=== PATIENT | male | born 1950 | race Caucasian/White ===

== ENCOUNTER 2016-10-09 09:28 | Observation (INO) | payer MEDICARE, OTHER ==
[~2016-10-09] VITALS: Ht 180.3 cm; Wt 99.8 kg
[~2016-10-09 09:28] MED LIST: ENOXAPARIN 40 MG/0.4 ML SYRINGE (J1650) SC SCH
--- NOTE | 2016-10-09 10:13 | REP ---
Clinical: Cerebrovascular accident. Comparison: None. Findings: Very subtle low density area within the left posterior parietal region is nonspecific but may represent acute infarction. Small old infarctions involving the left cerebellar hemisphere along with mild age-related atrophy and microvascular ischemic changes noted. The ventricles are symmetric and normal. No midline shift or mass effect appreciated. No acute intracranial hemorrhage. No extra-axial collection. Calvarium is intact paranasal sinuses and mastoid air cells are clear. Impression: 1. Chronic age-related changes without prior exams for comparison. 2. Cannot exclude subtle acute left parietal infarct. No associated mass effect, edema, or hemorrhage noted. Signed by Abraham Gilbert MD 10/09/2016 10:05 A
--- NOTE | 2016-10-09 10:35 | REP ---
Clinical: Cerebrovascular accident . Comparison: 08/08/2005 . Technique: PA view only. Findings: The mediastinum and cardiac silhouette are normal. The lung preston are clear and without acute consolidation, effusion, or pneumothorax. The skeletal structures are intact and normal. Impression: 1. No acute cardiopulmonary process. Signed by Abraham Gilbert MD 10/09/2016 10:27 A
[2016-10-09 10:41] LABS: BASO % 0.8 % (0.0-1.0); EOS % 1.1 % (0.0-3.0); LARGE UNSTAINED CELL # 0.1 K/mm3 (0.0-0.4); LARGE UNSTAINED CELL % 1.5 % (0.0-4.0); LYMPH # 1.5 K/mm3 (1.5-4.5); LYMPH % 28.4 % (24.0-44.0); MEAN CORPUSCULAR HEMOGLOBIN 32.6 pg (27.0-33.0); MEAN CORPUSCULAR HGB CONC 34.3 g/dl (32.0-36.5); MEAN CORPUSCULAR VOLUME 95.1 fl (80.0-96.0); MONO # 0.4 K/mm3 (0.0-0.8); NEUTROPHILS # 3.1 K/mm3 (1.8-7.7); NEUTROPHILS % 61.3 % (36.0-66.0); PLATELET COUNT, AUTOMATED 194 k/mm3 (150-450); RED CELL DISTRIBUTION WIDTH 12.4 % (11.5-14.5); WHITE BLOOD COUNT 5.1 K/mm3 (4.0-10.0)
[2016-10-09 10:45] LABS: INR 0.95
[2016-10-09 11:11] LABS: ANION GAP 3 MEQ/L (8-16); BLOOD UREA NITROGEN 19 MG/DL (7-18); CARBON DIOXIDE LEVEL 33 MEQ/L (21-32); CHLORIDE LEVEL 108 MEQ/L (98-107); CREATININE FOR GFR 1.27 MG/DL (0.70-1.30); GLOMERULAR FILTRATION RATE > 60.0 (>49); GLUCOSE, FASTING 104 MG/DL (80-110); POTASSIUM SERUM 4.7 MEQ/L (3.5-5.1); SODIUM LEVEL 144 MEQ/L (136-145)
[2016-10-09] MEDS ORDERED: ASPIRIN 325 MG TAB PO ONE (12:00)
--- NOTE | 2016-10-09 12:02 | REP ---
MRI BRAIN WITHOUT CONTRAST: 10/09/2016. Comparison: CT brain 10/09/2016. Clinical history: Left upper arm weakness. Abnormal CT with old infarcts left medial cerebellar hemisphere and questionable left parietal acute findings. Technique: Sagittal T1 with axial T1, T2, FLAIR, gradient echo, diffusion-weighted images and ADC mapping sequences. Findings. Lateral ventricles were generally symmetric, midline and without dilatation or displacement. Third and fourth ventricles were likewise grossly unremarkable. Basal ganglia shows dilated perivascular spaces without acute finding. Periventricular region shows some minor increased T2 and FLAIR signal with a couple of subcortical right frontal and anterior parietal hyperintense lesions and a few in posterior parietal lobes near the atria of the lateral ventricles. There is no vascular territory infarct, hemorrhage, mass or mass effect in the cerebral hemispheres. I do not see evidence of an acute ischemic focus were evidence of restricted water diffusion in the left parietal lobe or elsewhere in the cerebral hemispheres. Brainstem was intact. Cerebellum showed no acute infarct. There is old infarct with encephalomalacia in the medial aspect of the left cerebral hemisphere. No brain stem signal abnormality. The seventh/eighth cranial nerve complexes were intact. There is some ethmoid sinus mucosal thickening as well as a few of the peripheral left mastoid air cells with opacification suggesting minor left mastoiditis. No air-fluid levels. Orbits and contents symmetric and normal. Corpus callosum, optic chiasm and the craniocervical junction were intact. There is no cerebellar tonsillar ectopia. There is a partially empty sella with a thinned appearance to the pituitary gland in the sella. Gradient echo images show no acute hemorrhage. Areas of signal abnormality with dark signal on the gradient echo and diffusion sequences, which represent the dural calcifications seen on CT. Impression: 1. 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 2. There is no acute infarct, hemorrhage, mass or edema in either cerebral hemisphere. 3. Some periventricular and deep subcortical white matter hyperintense T2 and FLAIR signal foci present bilaterally. This represents small vessel white matter ischemic change or gliosis. No acute finding. Unreviewed
--- NOTE | 2016-10-09 12:18 | ECGEPIP ---
Stationary ECG Study [facility] - ED Test Date: 2016-10-09 Pat Name: BONITA ROSSI Department: Room: - Gender: M Project Internship: JT : 1950 Requested By: Jean Carlos Chaudhari Order Number: [id number] Reading MD: Libia Archibald Measurements Intervals [place] Rate: 64 P: 28 NV: 166 QRS: -17 QRSD: 82 T: 29 QT: 354 QTc: 366 Interpretive Statements SINUS RHYTHM LOW VOLTAGE LIMB NO PRIOR FOR COMPARISON Electronically Signed On 10-09-2016 12:18:06 EDT by Libia Archibald
--- NOTE | 2016-10-09 12:54 | HPEPDOC ---
Medical History and Physical Date of Admission 10/09/16 History and Physical ATTENDING: PCP: CC: HPI: yo with a past medical history significant for . Denies any fevers, chills , weakness, fatigue, WALKER, CP, SOB, cough, palpitations, abdominal pain, N/V/D or changes in bowel or bladder habits. Upon presentation to the hospital the patient was found to have , thus the hospitalist team was consulted. PMHx: PSHX: HOME MEDS: mg PO Daily mg PO Daily mg PO Daily ALLERGIES: NKDA SOCHX: Resides in: Marital Status: Kids: Employment: Tobacco use: ETOH: Illicit Drugs: Denies Recent travel: Advanced directives: FAMHX: Mother: Alive, well age secondary to Father: Alive, well Siblings: Alive, well Children: Alive, well Unexpected deaths due to medical reasons: None. ROS: As noted in HPI, otherwise 11pt ROS of systems reviewed and remarkable only for PE: GEN: yo, appears stated age. Well-nourished, well developed. No acute distress. Alert and oriented x 3. Pleasant, interactive. HEENT: Normocephalic, atraumatic. Pupils are equal, round, and reactive to light. Extraocular movements are intact. No nystagmus appreciated. Sclera are nonicteric. Conjunctiva without injection. Nose midline. Nasal turbinates without bogginess. EACs both patent BL. TMs both visualized and zee with good cone of light, no bulging or erythema. No facial asymmetry. Moist mucous membranes. Dentition fair. Pharynx pink and moist, no cobblestoning. Neck supple , trachea midline. No lymphadenopathy or thyromegaly appreciated. CHEST: Regular rate and rhythm, +S1, +S2 LUNGS: Clear to auscultation bilaterally. No wheezes, rales, or rhonchi. Breathing appears symmetric and easy. Patient is speaking in full sentences. No accessory muscle use. ABD: Round, soft, non-tender, non-distended. +Bowel sounds throughout. No rebound or guarding. No costovertebral angle tenderness. EXT: Pulses 2+ bilaterally dorsalis pedis and radial. No lower extremity edema appreciated. SKIN: [place], dry, warm. Capillary refill <2sec. No rashes. NEURO: Alert and oriented x 3. Cranial nerves III-XII are intact. No focal deficits appreciated. CXR: No acute cardiopulmonary process. CT: head 1. Chronic age-related changes without prior exams for comparison. 2. Cannot exclude subtle acute left parietal infarct. No associated mass effect, edema, or hemorrhage noted MRI Brain 1. 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 2. There is no acute infarct, hemorrhage, mass or edema in either cerebral hemisphere. 3. Some periventricular and deep subcortical white matter hyperintense T2 and FLAIR signal foci present bilaterally. This represents small vessel white matter ischemic change or gliosis. No acute finding. EKG: BLOOD CULTURES: A&P: 1. The patient will be admitted to for at least to 's service. DVT prophylaxis. The patient is a Vital Signs Vital Signs Date Time Temp Pulse Resp B/P (MAP) Pulse Ox O2 Delivery O2 Flow Rate FiO2 10/09/16 12:05 66 95 10/09/16 11:56 135/86 (102) 10/09/16 09:37 97.5 18 Room Air Laboratory Data Labs 24H Laboratory Tests 2 10/09/16 10:23: White Blood Count 5.1, Red Blood Count 4.91, Hemoglobin 16.0, Hematocrit 46.7, Mean Corpuscular Volume 95.1, Mean Corpuscular Hemoglobin 32.6, Mean Corpuscular Hemoglobin Concent 34.3, Red Cell Distribution Width 12.4, Platelet Count 194, Neutrophils (%) (Auto) 61.3, Lymphocytes (%) (Auto) 28.4, Monocytes ( %) (Auto) 7.0H, Eosinophils (%) (Auto) 1.1, Basophils (%) (Auto) 0.8, Neutrophils # (Auto) 3.1, Lymphocytes # (Auto) 1.5, Monocytes # (Auto) 0.4, Eosinophils # (Auto) 0.0, Basophils # (Auto) 0.0, Large Unclassified Cells % 1.5 , Large Unclassified Cells # 0.1, Prothrombin Time 12.8, Prothromb Time International Ratio 0.95, Activated Partial Thromboplast Time 30.8, Anion Gap 3L , Glomerular Filtration Rate > 60.0, Blood Urea Nitrogen 19H, Creatinine 1.27, Sodium Level 144, Potassium Level 4.7, Chloride Level 108H, Carbon Dioxide Level 33H, Calcium Level 9.0, Total Creatine Kinase 205, Creatine Kinase MB 2.7 , Creatine Kinase MB Relative Index 1.31, Troponin I < 0.02 CBC/BMP Laboratory Tests 10/09/16 10:23 Red Blood Count 4.91, Mean Corpuscular Volume 95.1, Mean Corpuscular Hemoglobin 32.6, Mean Corpuscular Hemoglobin Concent 34.3, Red Cell Distribution Width 12.4 , Neutrophils (%) (Auto) 61.3, Lymphocytes (%) (Auto) 28.4, Monocytes (%) (Auto ) 7.0 H, Eosinophils (%) (Auto) 1.1, Basophils (%) (Auto) 0.8, Neutrophils # ( Auto) 3.1, Lymphocytes # (Auto) 1.5, Monocytes # (Auto) 0.4, Eosinophils # (Auto ) 0.0, Basophils # (Auto) 0.0, Calcium Level 9.0, Total Creatine Kinase 205 Home Medications No Active Prescriptions or Reported Meds Allergies Coded Allergies: Doxycycline (Verified Allergy, Mild, rash, 10/09/16) Jacquie Cortez October 09, 2016 12:54
[2016-10-09 14:14] VITALS: BP 139/101
== END 2016-10-09 14:17 | disposition left against medical advice (07) ==
LOC: M ED 11:33 → M ED INP 12:49
PROVIDERS: ADMIT Internal Medicine Nephrology; ATTEND Internal Medicine
DX: R20.9 Unspecified disturbances of skin sensation (principal); R53.1 Weakness; R40.2420 Glasgow coma scale score 9-12, unspecified time; Z88.1 Allergy status to other antibiotic agents; Z87.891 Personal history of nicotine dependence
CPT/HCPCS: 36415; 70450; 70551; 71010; 80048; 82550; 82553; 84484; 85025; 85610; 85730; 86850; 86900; 86901; 93005; 93041; 94760; 99285; G0378